=== PATIENT | female | born 1995 | race Caucasian/White ===

== ENCOUNTER 2017-06-29 16:38 | Emergency (ER) | payer OTHER ==
[~2017-06-29] VITALS: Ht 175.3 cm; Wt 57.2 kg
[2017-06-29 19:26] VITALS: BP 128/89
[2017-06-29] MEDS ORDERED: IBUPROFEN 600 MG TAB PO ONE ×2 (21:00)
== END 2017-06-29 20:48 | disposition home or self-care (01) ==
LOC: ER 16:53
DX: S00.83XA Contusion of other part of head, initial encounter (principal); M54.2 Cervicalgia; V00.131A Fall from skateboard, initial encounter; Y93.51 Activity, roller skating (inline) and skateboarding; Y92.89 Other specified places as the place of occurrence of the external cause; Y99.8 Other external cause status
CPT/HCPCS: 36415; 70450; 72125; 84702